=== PATIENT | male | born 1975 | race Two or more races ===

== ENCOUNTER → 2017-03-06 | Outpatient (CLI) | payer OTHER | END | disposition home or self-care (01) | LOC: US 16:50 | PROVIDERS: ATTEND Internal Medicine Nephrology | DX: N18.3 Chronic kidney disease, stage 3 (moderate) (principal); N28.1 Cyst of kidney, acquired | CPT/HCPCS: 76770 ==

== ENCOUNTER 2020-12-31 09:03 | Emergency (ER) | payer OTHER ==
[~2020-12-31] VITALS: Ht 160 cm; Wt 90.0 kg
[2020-12-31 09:08] VITALS: BP 160/94
[2020-12-31] MEDS ORDERED: FLUORESCEIN SODIUM 1MG/STRIP RIGHTEYE ONE (09:30)
[2020-12-31] MEDS ORDERED: TETRACAINE 0.5% OPHTH DROPS 4ML RIGHTEYE ONE (09:30)
[2020-12-31] MEDS ORDERED: OFLO5DRO EACHEYE (09:40)
== END 2020-12-31 10:10 | disposition home or self-care (01) ==
LOC: ER 09:03
DX: H10.89 Other conjunctivitis (principal); I10 Essential (primary) hypertension
CPT/HCPCS: 99283; Z7610